=== PATIENT | male | born 1995 | race Caucasian/White ===

== ENCOUNTER 2022-08-04 19:44 | Emergency (ER) | payer OTHER ==
--- NOTE | 2022-08-04 19:50 | ERPHSYRPT ---
- History of Present Illness Time Seen by Provider: 08/04/22 19:50 Source: patient Exam Limitations: no limitations Physician History: This is a 27-year-old white male patient who was brought in by EMS from the residential secondary to seizure episode. Patient supposedly has a history of seizures. The patient is a new resident at the residential. He did tell the officer at the residential that he has been off his seizure medications for several days. Patient does not recall the name of his medication. Patient is relatively sleepy since he received Valium intravenously to help stop the seizures that occurred at the residential. Supposedly, the patient gave a false name at the residential but now his name is verified as Bill Iglesias. Patient's condition does not allow me to obtain any medical information at this time. There was no history of head injury Timing/Duration: today Severity: moderate Character of Deficits: none Deficits: no difficulties Baseline/Normal Cognition: alert oriented x 3 Current Cognition: poor alertness (Post intravenous Valium) Baseline Gait: walks w/o assistance Associated Symptoms: seizures (At the residential), other (Patient currently is lethargic and is unable to answer my questions.) Travel Risk - International Travel Have you traveled outside of the country in past 3 weeks: No - Coronavirus Screening Are you exhibiting any of the following symptoms?: No Close contact with a COVID-19 positive Pt in past 14-21 Days: No - Review of Systems Constitutional: No Symptoms Eyes: No Symptoms Ears, Nose, & Throat: No Symptoms Respiratory: No Symptoms Cardiac: No Symptoms Abdominal/Gastrointestinal: No Symptoms Genitourinary Symptoms: No Symptoms Musculoskeletal: No Symptoms Skin: No Symptoms Neurological: Lethargy, Seizure (At the residential. No seizure on arrival to emergency department) Psychological: No Symptoms Endocrine: No Symptoms Hematologic/Lymphatic: No Symptoms Immunological/Allergic: No Symptoms All Other Systems: Reviewed and Negative - Past Medical History Pertinent Past Medical History: Yes - Nursing Vital Signs Nursing Vital Signs: Initial Vital Signs Temperature 98.4 F 08/04/22 19:47 Pulse Rate 75 08/04/22 19:47 Respiratory Rate 16 08/04/22 19:47 Blood Pressure 135/79 08/04/22 19:47 O2 Sat by Pulse Oximetry 94 L 08/04/22 19:47 Pain Scale Pain Intensity 0 - [place] Coma Scale Best Eye Response ([place]): (3) open to voice Best Verbal Response ([place]): (3) inappropriate words Best Motor Response ([place]): (5) localizes to pain [place] Total: 11 - Physical Exam General Appearance: no apparent distress, lethargy Eye Exam: bilateral eye: normal inspection, PERRL, EOMI Ears, Nose, Throat Exam: normal ENT inspection, moist mucous membranes Neck Exam: normal inspection, non-tender, supple, full range of motion Respiratory: normal breath sounds, lungs clear, airway intact, No chest tenderness, No respiratory distress Cardiovascular: regular rate/rhythm, normal heart sounds, normal peripheral pulses Gastrointestinal: soft, normal bowel sounds, No tenderness Rectal Exam: not done Back Exam: normal inspection, normal range of motion, No CVA tenderness, No vertebral tenderness Extremity Exam: normal inspection, normal range of motion, pelvis stable Mental Status: intoxicated appearance, 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 Exam: normal hearing, normal speech, PERRL Skin Exam: normal color, warm, dry SpO2 Interpretation: normal O2 Delivery: Room Air - Course Nursing assessment & vital signs reviewed: Yes EKG Interpreted by Me: RATE ([id number]), Sinus Rhythm, NORMAL AXIS, NORMAL INTERVALS, NORMAL QRS, NORMAL ST-T, Other (No acute ischemic changes.) Ordered Tests: Active Orders 24 hr Category Date Time Status Clean Catch Urine Specimen STAT Care 08/04/22 20:01 Active EKG-ER Only STAT Care 08/04/22 20:01 Active IV Insertion STAT Care 08/04/22 20:01 Active Pulse Oximetry (ED) STAT Care 08/04/22 20:01 Active HEAD WITHOUT CONTRAST [CT] Stat Exams 08/04/22 20:01 Taken CBC W DIFF Stat Lab 08/04/22 20:37 Completed CMP Stat Lab 08/04/22 20:37 Completed UA W/RFX CULTURE Stat Lab 08/04/22 20:05 Completed Urine Triage Profile Stat Lab 08/04/22 20:05 Results Lab/Rad Data: Laboratory Result Diagrams 08/04/22 20:37 08/04/22 20:37 Laboratory Results 08/04/22 08/04/22 08/04/22 Range/Units 20:37 20:37 20:05 WBC 11.6 H (4.0-10.5) x10^3/uL RBC 5.16 (4.1-5.6) x10^6/uL Hgb 15.5 (12.5-18.0) g/dL Hct 46.8 (42-50) % MCV 90.7 (78-100) fL MCH 30.0 (26-32) pg MCHC 33.1 (32-36) g/dL RDW 12.4 (11.5-14.0) % Plt Count 288 (150-450) x10^3/uL MPV 9.3 (7.5-11.0) fL Gran % 77.9 H (36.0-66.0) % Immature Gran % (Auto) 0.4 (0.00-0.4) % Nucleat RBC Rel Count 0.0 (0.00-0.1) % Eos # (Auto) 0.09 (0-0.5) x10^3/uL Immature Gran # (Auto) 0.05 H (0.00-0.03) x10^3u/L Absolute Lymphs (auto) 1.84 (1.0-4.6) x10^3/uL Absolute Monos (auto) 0.56 (0.0-1.3) x10^3/uL Absolute Nucleated RBC 0.00 (0.00-0.01) x10^3u/L Lymphocytes % 15.9 L (24.0-44.0) % Monocytes % 4.8 (0.0-12.0) % Eosinophils % 0.8 (0.00-5.0) % Basophils % 0.2 (0.0-0.4) % Absolute Granulocytes 9.03 H (1.4-6.9) x10^3/uL Basophils # 0.02 (0-0.4) x10^3/uL Sodium 137 (137-145) mmol/L Potassium 3.8 (3.5-5.1) mmol/L Chloride 104 (98-107) mmol/L Carbon Dioxide 27 (22-30) mmol/L Anion Gap 9.7 (5-15) MEQ/L BUN 13 (9-20) mg/dL Creatinine 0.63 L (0.66-1.25) mg/dL Estimated GFR > 60.0 ML/MIN Glucose 103 (74-106) mg/dL Calcium 8.8 (8.4-10.2) mg/dL Total Bilirubin 0.40 (0.2-1.3) mg/dL AST 21 (17-59) U/L ALT 35 (0-50) U/L Alkaline Phosphatase 74 (38-126) U/L Serum Total Protein 7.1 (6.3-8.2) g/dL Albumin 4.4 (3.5-5.0) g/dL Urinalys Dipstick Clnc MAIN LAB Urine Color YELLOW (YELLOW) Urine Appearance CLEAR (CLEAR) Urine pH 7.0 (5-6) Ur Specific [place] 1.015 (1.005-1.025) POC Urine Protein Conf NEGATIVE (Negative) Urine Ketones NEGATIVE (NEGATIVE) Urine Nitrite NEGATIVE (NEGATIVE) Urine Bilirubin NEGATIVE (NEGATIVE) Urine Urobilinogen 1 (0-1) mg/dL Urine Leukocytes NEGATIVE (NEGATIVE) Urine WBC (Auto) 0-2 (0-5) /HPF Urine RBC (Auto) NONE (0-2) /HPF U Epithel Cells (Auto) NONE (FEW) /HPF Urine Bacteria (Auto) NONE (NEGATIVE) /HPF Urine RBC NEGATIVE (0-5) [place]/ul Ur Culture Indicated? NO Urine Glucose NEGATIVE (NEGATIVE) mg/dL Urine Opiates Level (NEGATIVE) Ur Methadone (NEGATIVE) Urine Barbiturates (NEGATIVE) Ur Phencyclidine (PCP) Urine Amphetamine U Benzodiazepine Level Urine Cocaine Urine Marijuana (THC) 08/04/22 Range/Units 20:05 WBC (4.0-10.5) x10^3/uL RBC (4.1-5.6) x10^6/uL Hgb (12.5-18.0) g/dL Hct (42-50) % MCV (78-100) fL MCH (26-32) pg MCHC (32-36) g/dL RDW (11.5-14.0) % Plt Count (150-450) x10^3/uL MPV (7.5-11.0) fL Gran % (36.0-66.0) % Immature Gran % (Auto) (0.00-0.4) % Nucleat RBC Rel Count (0.00-0.1) % Eos # (Auto) (0-0.5) x10^3/uL Immature Gran # (Auto) (0.00-0.03) x10^3u/L Absolute Lymphs (auto) (1.0-4.6) x10^3/uL Absolute Monos (auto) (0.0-1.3) x10^3/uL Absolute Nucleated RBC (0.00-0.01) x10^3u/L Lymphocytes % (24.0-44.0) % Monocytes % (0.0-12.0) % Eosinophils % (0.00-5.0) % Basophils % (0.0-0.4) % Absolute Granulocytes (1.4-6.9) x10^3/uL Basophils # (0-0.4) x10^3/uL Sodium (137-145) mmol/L Potassium (3.5-5.1) mmol/L Chloride (98-107) mmol/L Carbon Dioxide (22-30) mmol/L Anion Gap (5-15) MEQ/L BUN (9-20) mg/dL Creatinine (0.66-1.25) mg/dL Estimated GFR ML/MIN Glucose (74-106) mg/dL Calcium (8.4-10.2) mg/dL Total Bilirubin (0.2-1.3) mg/dL AST (17-59) U/L ALT (0-50) U/L Alkaline Phosphatase (38-126) U/L Serum Total Protein (6.3-8.2) g/dL Albumin (3.5-5.0) g/dL Urinalys Dipstick Clnc Urine Color (YELLOW) Urine Appearance (CLEAR) Urine pH (5-6) Ur Specific [place] (1.005-1.025) POC Urine Protein Conf (Negative) Urine Ketones (NEGATIVE) Urine Nitrite (NEGATIVE) Urine Bilirubin (NEGATIVE) Urine Urobilinogen (0-1) mg/dL Urine Leukocytes (NEGATIVE) Urine WBC (Auto) (0-5) /HPF Urine RBC (Auto) (0-2) /HPF U Epithel Cells (Auto) (FEW) /HPF Urine Bacteria (Auto) (NEGATIVE) /HPF Urine RBC (0-5) [place]/ul Ur Culture Indicated? Urine Glucose (NEGATIVE) mg/dL Urine Opiates Level NEGATIVE (NEGATIVE) Ur Methadone NEGATIVE (NEGATIVE) Urine Barbiturates NEGATIVE (NEGATIVE) Ur Phencyclidine (PCP) Pending Urine Amphetamine Pending U Benzodiazepine Level Pending Urine Cocaine Pending Urine Marijuana (THC) Pending - Progress Progress: improved, re-examined Progress Note: 08/04/22 21:09 CAT scan of the head without contrast shows no acute intracranial abnormality. Medical decision making: This patient is now more awake alert and oriented. He does not know the name of the medication he is supposed to be on to help prevent seizures. He knows that he has not been taking them for several days. Patient can be discharged back to residential and I will give instructions for the medical staff at the residential to provide the patient with benzodiazepines until they are able to determine what antiseizure medication he is on. Counseled pt/family regarding: lab results, diagnosis, need for follow-up, rad results - Departure Departure Disposition: Home Clinical Impression: Noncompliance with medication regimen, Seizure Condition: Stable Critical Care Time: No Additional Instructions: Have the medical staff at the residential provide the patient with benzodiazepines, short-term, until they are able to determine which antiseizure medication he is supposed to be taking to control his seizures.
[2022-08-04 20:18] LABS: Appearance CLEAR (CLEAR); Bilirubin NEGATIVE (NEGATIVE); Dipstick done @ ? MAIN LAB; Glucose NEGATIVE (NEGATIVE); Ketones NEGATIVE (NEGATIVE); Nitrite NEGATIVE (NEGATIVE); Protein,Urine Dip NEGATIVE (Negative); RBC NEGATIVE Ery/ul (0-5); Specific Gravity 1.015 (1.005-1.025); Urobilinogen 1 mg/dL (0-1)
[2022-08-04 20:20] LABS: Urine Cultured Indicated? NO; WBC 0-2 /HPF (0-5)
[2022-08-04 20:35] LABS: Barbiturate,Urine NEGATIVE (NEGATIVE); Methadone,Urine NEGATIVE (NEGATIVE); Opiate,Urine NEGATIVE (NEGATIVE)
[2022-08-04 20:38] LABS: Absolute Neutrophil Ct (ANC) 9.03 x10^3/uL (1.4-6.9); Basophil (Absolute #) 0.02 x10^3/uL (0-0.4); Eosinophil % 0.8 % (0.00-5.0); Eosinophil (Absolute #) 0.09 x10^3/uL (0-0.5); Hematocrit 46.8 % (42-50); Hemoglobin 15.5 g/dL (12.5-18.0); Lymphocyte (Absolute #) 1.84 x10^3/uL (1.0-4.6); Lymphocytes % 15.9 % (24.0-44.0); Mean Cell Volume 90.7 fL (78-100); Mean Corpuscular Hgb Concent. 33.1 g/dL (32-36); Mean Platelet Volume 9.3 fL (7.5-11.0); Monocyte (Absolute #) 0.56 x10^3/uL (0.0-1.3); Monocytes % 4.8 % (0.0-12.0); Neutrophil % 77.9 % (36.0-66.0); Platelet Count 288 x10^3/uL (150-450); Red Blood Count 5.16 x10^6/uL (4.1-5.6); Red Cell Distribution Width 12.4 % (11.5-14.0); White Blood Count 11.6 x10^3/uL (4.0-10.5)
[2022-08-04 20:56] LABS: ALBUMIN 4.4 g/dL (3.5-5.0); ALKALINE PHOSPHATASE 74 U/L (38-126); ANION GAP 9.7 MEQ/L (5-15); BLOOD UREA NITROGEN 13 mg/dL (9-20); CHLORIDE 104 mmol/L (98-107); Calcium 8.8 mg/dL (8.4-10.2); Carbon Dioxide 27 mmol/L (22-30); Creatinine 1 0.63 mg/dL (0.66-1.25); EST GLOMERULAR FILTRATION RATE > 60.0 ML/MIN; Glucose 103 mg/dL (74-106); Potassium 3.8 mmol/L (3.5-5.1); SGOT/AST 21 U/L (17-59); SGPT/ALT 35 U/L (0-50); SODIUM 137 mmol/L (137-145); Total Protein 7.1 g/dL (6.3-8.2)
[2022-08-04 21:03] LABS: Amphetamine,Urine NEGATIVE (NEGATIVE)
[2022-08-04 21:09] LABS: Cocaine,Urine NEGATIVE (NEGATIVE); PCP,Urine NEGATIVE (NEGATIVE)
[2022-08-04 21:11] LABS: Benzodiazepine,Urine POSITIVE (NEGATIVE)
[2022-08-04 21:22] VITALS: BP 125/77
[2022-08-04 21:32] LABS: THC,Urine POSITIVE (NEGATIVE)
[2022-08-04 21:54] VITALS: PULSE 77; O2SAT 98
--- NOTE | 2022-08-05 08:34 | XRAY ---
Indication: Seizure. Right head injury. Headache and weakness. Multiple contiguous axial images obtained through the head without contrast. Comparison: None Normal appearing brain parenchyma, ventricles, and bony calvarium. Visualized paranasal sinuses and mastoid air cells are clear. Impression: Normal CT head without contrast exam.
== END 2022-08-04 21:54 | disposition home or self-care (01) ==
LOC: ED 19:44 → EEVIPCON 19:44 → ED 21:54
DX: R56.9 Unspecified convulsions (principal); Z91.14 Patient's other noncompliance with medication regimen
CPT/HCPCS: 36000; 36415; 70450; 80053; 80307; 81015; 84146; 85025; 93005; 94760; 99284